=== PATIENT | male | born 1985 | race Two or more races ===

== ENCOUNTER 2016-07-16 18:59 | Emergency (ER) | payer SELFPAY ==
--- NOTE | 2016-07-16 20:35 | ER Document Report ---
ED Medical Screen (RME) - General Stated Complaint: STD CHECK Mode of Arrival: Ambulatory Information source: Patient Notes: 30-year-old male presents to the emergency department complaining of dysuria and penile discharge. Patient reports was diagnosed and treated for chlamydia last month but states has been sexually active since with same partner. I have greeted and performed a rapid initial assessment of this patient. A comprehensive ED assessment and evaluation of the patient, analysis of test results and completion of the medical decision making process will be conducted by additional ED providers. TRAVEL OUTSIDE OF THE [place] IN LAST 30 DAYS: No - Related Data Allergies/Adverse Reactions: No Known Allergies Allergy (Unverified 07/16/16 20:22) Past Medical History - Social History Chew tobacco use (# tins/day): No Frequency of alcohol use: None Drug Abuse: None Renal/ Medical History: Denies: Hx Peritoneal Dialysis Physical Exam - Vital signs Vitals: Temp Pulse Resp BP Pulse Ox 98.0 F 62 18 103/55 L 100 07/16/16 20:13 07/16/16 20:13 07/16/16 20:13 07/16/16 20:13 07/16/16 20:13 - General General appearance: Appears well, Alert In distress: None - Respiratory Respiratory status: No respiratory distress Course - Vital Signs Vital signs: Temp Pulse Resp BP Pulse Ox 98.0 F 62 18 103/55 L 100 07/16/16 20:13 07/16/16 20:13 07/16/16 20:13 07/16/16 20:13 07/16/16 20:13
[2016-07-16 22:19] LABS: CHLAM PCR NOT DETECTED (NOT DETECT)
[2016-07-16] MEDS ORDERED: METRONIDAZOLE 500 MG TABLET PO ONE (23:12)
--- NOTE | 2016-07-16 23:15 | ER Document Report ---
ED General - General Chief Complaint: Penile Discharge Stated Complaint: STD CHECK Mode of Arrival: Ambulatory Notes: Patient is a 22-year-old male presents with complaint of dysuria and some no discharge. He says his symptoms have been ongoing for over a month. He was treated month ago with doxycycline and Rocephin for chlamydia infection. He says the discharge is now clearance of whitish. He says he still has some dysuria but not as much as he used to have. He and his a separation. He had sexual intercourse with another woman. Him and his are now back together. His test and negative. He's concerned because he still has some intermittent dysuria and clear discharge from his penis. No redness. No swelling. No lesions. No fevers. No other complaints at this time. TRAVEL OUTSIDE OF THE [place] IN LAST 30 DAYS: No - Related Data Allergies/Adverse Reactions: No Known Allergies Allergy (Unverified 07/16/16 20:22) Past Medical History - General Information source: Patient - Social History Smoking Status: Current Every Day Smoker Chew tobacco use (# tins/day): No Frequency of alcohol use: None Drug Abuse: None Family History: Reviewed & Not Pertinent Patient has suicidal ideation: No Patient has homicidal ideation: No Renal/ Medical History: Denies: Hx Peritoneal Dialysis Review of Systems - Review of Systems Notes: My Normal Review Basic REVIEW OF SYSTEMS: CONSTITUTIONAL : Denies fever, chills, or sweats. Denies recent illness. RESPIRATORY: Denies cough, cold, or chest congestion. Denies shortness of breath, difficulty breathing, or wheezing. GASTROINTESTINAL: Denies abdominal pain. Denies nausea, vomiting, or diarrhea. Denies constipation. Last BM: GENITOURINARY: Dysuria and clear penile discharge. MUSCULOSKELETAL: Denies neck or back pain or joint pain or swelling. SKIN: Denies rash or skin lesions. ALL OTHER SYSTEMS REVIEWED AND NEGATIVE. Physical Exam - Vital signs Vitals: Temp Pulse Resp BP Pulse Ox 98.0 F 62 18 103/55 L 100 07/16/16 20:13 07/16/16 20:13 07/16/16 20:13 07/16/16 20:13 07/16/16 20:13 - Notes Notes: General Appearance: Well nourished, alert, cooperative, no acute distress, no obvious discomfort. Well-appearing. Vitals: reviewed, See vital signs table. Head: no swelling or tenderness to the head Eyes: PERRL, EOMI, Conjuctiva clear Mouth: No decreasd moisture Genital: Normal external genitalia. No lesions, redness, or swelling. Patient was able to squeeze a small amount discharge which was completely clear. Extremities: strength 5/5 in all extremities, good pulses in all extremities, no swelling or tenderness in the extremities, no edema. Skin: warm, dry, appropriate color, no rash Neuro: speech clear, oriented x 3, normal affect, responds appropriately to questions. Course - Vital Signs Vital signs: Temp Pulse Resp BP Pulse Ox 98.0 F 62 18 103/55 L 100 07/16/16 20:13 07/16/16 20:13 07/16/16 20:13 07/16/16 20:13 07/16/16 20:13 - Transfer of Care Notes: 07/16/16 23:19 Patient's urinalysis was negative for gonorrhea and chlamydia. He still has some dysuria. I'll treat him for possible trichomonas. I informed him to use condoms. I informed him to have his and him both rechecked after his treatment is complete. Encourage return to ER if he has any recurrence or worsening of symptoms or if his symptoms are not improved after taking the antibiotics. Patient agrees with plan and will be discharged home. Dictation of this chart was performed using voice recognition software; therefore, there may be some unintended grammatical errors. Discharge - Discharge Clinical Impression: Penile discharge Condition: Good Disposition: HOME, SELF-CARE Additional Instructions: Urethritis You have urethritis, an infection of the urethra. The usual symptoms are pain on urination and discharge. The infection is often caused by gonorrhea or chlamydia. Treatment is antibiotics. In addition, any sexual contacts should be evaluated by a physician as soon as possible. As this infection can be transmitted sexually, refrain from sexual activity until the infection is confirmed as healed by your physician. If gonorrhea or chlamydia is found on culture, the health department must be notified. Call the doctor at once if you develop difficulty passing your urine, high fever, rash, joint swelling, or other new symptoms. Please return to ER immediately if you have fevers, increased urethral discharge , or feel that her symptoms are worsening. Please follow-up with the health Department for further STD testing. Please wear condoms when having sex. Please have your retested after your treatment is completed. Please return to ER or the health Department continued have any symptoms after antibiotic course is completed. Prescriptions: Metronidazole [Flagyl 500 mg Tablet] 500 mg PO BID #14 tablet
[2016-07-16 23:28] VITALS: BP 112/74
== END 2016-07-16 23:27 | disposition home or self-care (01) ==
LOC: ER 18:59
DX: R36.9 Urethral discharge, unspecified (principal); R30.0 Dysuria; F17.200 Nicotine dependence, unspecified, uncomplicated
CPT/HCPCS: 87491; 87591; 99283